=== PATIENT | male | born 1995 ===

== ENCOUNTER 2017-05-19 21:38 | Emergency (ER) | payer OTHER ==
[2017-05-19 21:50] VITALS: BP 144/91; PULSE 93; RESP 16; TEMP 99; O2SAT 98
--- NOTE | 2017-05-19 22:19 | ED PDOC ---
Lower Extremity Pain/Injury Time Seen by Provider: 05/19/17 21:55 Chief Complaint (Nursing): Lower Extremity Problem/Injury Chief Complaint (Provider): Left posterior thigh pain History Per: Patient History/Exam Limitations: no limitations Onset/Duration Of Symptoms: Days Current Symptoms Are (Timing): Still Present Severity: Moderate Pain Scale Rating Of: 5 Additional Complaint(s): PT states he was playing kickball and felt a pop senation in the back of the left thigh. PT reports sharp burning pain with movement but not all movement, specifically knee flexion. 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 Past Medical History Reviewed: Historical Data, Nursing Documentation, Vital Signs Vital Signs: Last Vital Signs Temp 99.0 F 05/19/17 21:48 Pulse 93 H 05/19/17 21:48 Resp 16 05/19/17 21:48 BP 144/91 H 05/19/17 21:48 Pulse Ox 98 05/19/17 21:48 - Medical History PMH: No Chronic Diseases - Surgical History Surgical History: No Surg Hx - Family History Family History: States: No Known Family Hx - Living Arrangements Living Arrangements: With Family - Social History Current smoker - smoking cessation education provided: No Alcohol: Occasional Drugs: Denies - Home Medications Home Medications: Ambulatory Orders Medication Instructions Recorded Cyclobenzaprine [Cyclobenzaprine 10 mg PO Q8H #20 tab 05/19/17 HCl] Ibuprofen [Motrin Tab] 800 mg PO Q6H PRN #20 tab 05/19/17 - Allergies Allergies/Adverse Reactions: Allergies Allergy/AdvReac Type Severity Reaction Status Date / Time procaine [From Novocain] Allergy ANGIOEDEMA Verified 05/19/17 21:48 Review of Systems ROS Statement: Except As Marked, All Systems Reviewed And Found Negative Musculoskeletal: Positive for: Other Physical Exam - Reviewed Nursing Documentation Reviewed: Yes Vital Signs Reviewed: Yes - Physical Exam Appears: Positive for: Well, Non-toxic, No Acute Distress Head Exam: Positive for: ATRAUMATIC, NORMAL INSPECTION, NORMOCEPHALIC Skin: Positive for: Normal Color, Warm Eye Exam: Positive for: Normal appearance ENT: Positive for: Normal ENT Inspection Neck: Positive for: Normal, Painless ROM Respiratory: Negative for: Accessory Muscle Use, Respiratory Distress Back: Positive for: Normal Inspection Extremity: Positive for: Normal ROM, Tenderness (Upper posterior thigh/ hamstrings with palpable muscle mass ), Other (Pain with knee flexion against resistance ). Negative for: Deformity Neurologic/Psych: Positive for: Alert, Oriented - ECG O2 Sat by Pulse Oximetry: 98 Pulse Ox Interpretation: Normal Disposition - Clinical Impression Clinical Impression: Muscle injury - Patient ED Disposition Is Patient to be Admitted: No Counseled Patient/Family Regarding: Diagnosis, Need For Followup, Rx Given - Disposition Referrals: Mynor Tyler MD [Medical Doctor] - Disposition: Routine/Home Disposition Time: 22:20 Condition: GOOD Additional Instructions: Please follow-up with orthopedics. Prescriptions: Cyclobenzaprine [Cyclobenzaprine HCl] 10 mg PO Q8H #20 tab Ibuprofen [Motrin Tab] 800 mg PO Q6H PRN #20 tab PRN Reason: Pain Instructions: Musculoskeletal Pain (ED)
== END 2017-05-19 23:13 | disposition home or self-care (01) ==
LOC: H.ER 21:38
DX: S76.312A Strain of muscle, fascia and tendon of the posterior muscle group at thigh level, left thigh, initial encounter (principal); X50.9XXA Other and unspecified overexertion or strenuous movements or postures, initial encounter; Y92.89 Other specified places as the place of occurrence of the external cause